=== PATIENT | male | born 1970 | race Caucasian/White ===

== ENCOUNTER 2018-07-03 12:14 | Emergency (ER) | payer BC ==
[2018-07-03 12:28] LABS: Absolute Lymphocytes (CBC) 3.1 K/uL (0.7-4.9); Absolute Monocytes 0.5 K/uL (0.1-1.3); Absolute Neutrophil 4.4 K/uL (1.8-8.0); Basophils % 0.5 % (0-1.3); Hematocrit 46.9 % (39.6-49.0); Lymphocytes % 37.9 % (15.3-44.8); MCH 32.5 pg (27.0-35.0); MPV 8.7 fL (7.6-11.3); Monocytes % 6.6 % (3.3-12.3); RBC Red Blood Cell Count 5.15 M/uL (4.33-5.43)
[2018-07-03 12:53] LABS: Protime INR 1.05
[2018-07-03 13:03] LABS: Albumin 4.2 g/dL (3.4-5.0); Bilirubin Direct 0.2 mg/dL (0-0.2); Bilirubin Total 0.7 mg/dL (0.2-1.0); CKMB Creatine Kinase MB 1.6 ng/mL (0.3-3.6); Magnesium 1.9 mg/dL (1.8-2.4); Potassium 3.9 mmol/L (3.5-5.1); Protein, Total 7.6 g/dL (6.4-8.2)
--- NOTE | 2018-07-03 13:03 | RAD REPORT ---
EXAM DESCRIPTION: CT - Head Brain Wo Cont - 07/03/2018 12:49 pm CLINICAL HISTORY: Syncope COMPARISON: None. TECHNIQUE: Computed axial tomography of the head was obtained. IV contrast was not requested. All CT scans are performed using dose optimization technique as appropriate and may include automated exposure control or mA/KV adjustment according to patient size. FINDINGS: A right mastoidectomy has been performed An intracranial bleed is not seen . The ventricles are normal in caliber. No extra-axial fluid collection is noted. Fluid within the sinuses/ mastoids is not seen. IMPRESSION: No acute intracranial abnormality is seen. If patient's symptoms persist MRI of the bra in would be recommended.
--- NOTE | 2018-07-03 13:04 | RAD REPORT ---
EXAM DESCRIPTION: Za Single View07/03/2018 12:54 pm CLINICAL HISTORY: cough COMPARISON: none FINDINGS: The lungs appear clear of acute infiltrate. The heart is normal size IMPRESSION: No acute abnormalities displayed
--- NOTE | 2018-07-03 13:17 | EKG ---
Test Date: 2018-07-03 Test Time: 12:17:43 [place] Installer: [facility] MEASUREMENT RESULTS: Intervals: Rate: 77 WY: 156 QRSD: 80 QT: 370 QTc: 418 [place]: P: -4 WY: 156 QRS: 10 T: 19 INTERPRETIVE STATEMENTS: Normal sinus rhythm Normal ECG No previous ECG available for comparison Electronically Signed On 07-03-18 13:16:17 CDT by Ta Read
--- NOTE | 2018-07-03 14:11 | ER ---
Nurse's Notes [facility] Name: Kuldeep Veras Age: 48 yrs Sex: Male : 1970 Arrival Date: 07/03/2018 Time: 12:16 Bed 4 Private MD: Diagnosis: Syncope and collapse;Heat syncope;Heat exhaustion, unspecified;Headache;Essential (primary) hypertension Presentation: 07/03 12:18 Presenting complaint: EMS states: He was at work just standing there and his co-workers jl7 reports he 'collapsed', reports he did hit his head. Pt reported having a CHENG and dizziness at [id number]. Transition of care: patient was not received from another setting of care. Onset of symptoms was July 03, 2018. Risk Assessment: Do you want to hurt yourself or someone else? Patient reports no desire to harm self or others. Initial Sepsis Screen: Does the patient meet any 2 criteria? No. Patient's initial sepsis screen is negative. Does the patient have a suspected source of infection? No. Patient's initial sepsis screen is negative. Care prior to arrival: Medication(s) given: Normal saline infusion, 200 mL IV initiated. 18 GA, in the left antecubital area, Glucose check: 84. 12:18 Method Of Arrival: EMS: [facility] jl7 12:18 Acuity: ALLISON 3 jl7 Triage Assessment: 12:22 General: Appears in no apparent distress. uncomfortable, Behavior is calm, cooperative, jl7 appropriate for age. Pain: Complains of pain in CHENG Pain does not radiate. Pain currently is 4 out of 10 on a pain scale. Pain began 4 hours ago. Is continuous. EENT: No signs and/or symptoms were reported regarding the EENT system. Neuro: Level of Consciousness is awake, alert, obeys commands, Oriented to person, place, time, situation. Cardiovascular: Patient's skin is warm and dry. Respiratory: Airway is patent Respiratory effort is even, unlabored, Respiratory pattern is regular, symmetrical, Breath sounds are clear bilaterally. GI: No signs and/or symptoms were reported involving the gastrointestinal system. : No signs and/or symptoms were reported regarding the genitourinary system. Derm: Skin is pink, warm \T\ dry. Musculoskeletal: No signs and/or symptoms reported regarding the musculoskeletal system. Historical: - Allergies: 12:22 shrimp; jl7 - Home Meds: 12:22 lisinopril Oral [Active]; jl7 - PMHx: 12:22 Hypertension; jl7 - Immunization history:: Adult Immunizations unknown. - Social history:: Smoking status: Patient uses tobacco products, smokes one-half pack cigarettes per day. - Family history:: not pertinent. - Ebola Screening: : No symptoms or risks identified at this time. Screenin:24 Abuse screen: Denies threats or abuse. Denies injuries from another. Nutritional [facility] screening: No deficits noted. Tuberculosis screening: No symptoms or risk factors identified. Fall Risk Fall in past 12 months (25 points). No secondary diagnosis (0 pts). IV access (20 points). Ambulatory Aid- None/Bed Rest/Nurse Assist (0 pts). Gait- Weak (10 pts.). Mental Status- Oriented to own ability (0 pts). Total Steiner Fall Scale indicates High Risk Score (45 or more points). Fall prevention measures have been instituted. Side Rails Up X 2 Placed Close to Nursing Station Frequent Obs/Assessments Occuring Family Present and informed to notify staff if the need to leave the bedside As available patient and family educated on Fall Prevention Program and Strategies. Assessment: 12:24 General: See triage assessment. [facility] 14:21 Reassessment: Patient appears in no apparent distress at this time. Patient and/or iw family updated on plan of care and expected duration. Pain level reassessed. Patient is alert, oriented x 3, equal unlabored respirations, skin warm/dry/pink. Patient states feeling better. Patient states symptoms have improved. Vital Signs: 12:22 BP 143 / 84; Pulse 71; Resp 16 S; Pulse Ox 97% on R/A; Weight 72.57 kg (R); Height 5 7 ft. 5 in. (165.10 cm) (R); Pain 4/10; 14:21 BP 121 / 84; Pulse 65; Resp 18 S; Pulse Ox 97% on R/A; Pain 0/10; iw 12:22 Body Mass Index 26.63 (72.57 kg, 165.10 cm) [facility] ED Course: 12:16 Patient arrived in ED. [facility] 12:16 Herman Pelaez MD is Attending Physician. [facility] 12:18 Hillary Mcginnis RN is Primary Nurse. jl7 12:21 Triage completed. jl7 12:22 Arm band placed on right wrist. jl7 12:24 Patient has correct armband on for positive identification. Placed in gown. Bed in low jl7 position. Call light in reach. Side rails up X 1. gambling monitor on. Pulse ox on. NIBP on. 12:24 Maintain EMS IV. Dressing intact. Good blood return noted. Site clean \T\ dry. Gauge \T\ jl 7 site: 18 Left AC. 12:48 CT completed. Patient moved to CT via stretcher. Patient moved back from CT. cw1 12:48 CT Head Brain wo Cont In Process Unspecified. EDMS 12:55 XRAY Chest (1 view) In Process Unspecified. EDMS 14:21 No provider procedures requiring assistance completed. IV discontinued, intact, iw bleeding controlled, No redness/swelling at site. Pressure dressing applied. Administered Medications: 12:27 Drug: NS 0.9% 1000 ml Route: IV; Rate: 1 bolus; Site: left antecubital; jl7 13:35 Follow up: IV Status: Completed infusion iw 14:25 Not Given (Patient Refused): NS 0.9% 1000 ml IV at 1 bolus Per protocol; 1000 mL bolus iw 14:25 Not Given (Physician Discretion): Tylenol 650 mg PO once iw Outcome: 14:10 Discharge ordered by MD. potter 14:26 Discharged to home ambulatory, with family. iw 14:26 Condition: good 14:26 Discharge instructions given to patient, family, Instructed on discharge instructions, follow up and referral plans. Demonstrated understanding of instructions, follow-up care. 14:27 Patient left the ED. iw Signatures: Dispatcher [employer] Herman Hudson MD MD cha Williams, Irene, RN RN Brittney Menezes cw1 Hillary Mcginnis, TAMAR RN jl7
--- NOTE | 2018-07-03 14:11 | EDPHYS ---
Physician Documentation [facility] Name: Kuldeep Veras Age: 48 yrs Sex: Male : 1970 Arrival Date: 07/03/2018 Time: 12:16 Bed 4 Private MD: ED Physician Herman Pelaez HPI: 07/03 12:18 This 48 yrs old Male presents to ER via Unassigned with complaints of syncope.tariq 12:18 The patient complains of pain to the forehead, left temporal area and right temporal tariq area. The patient describes the headache as aching. Onset: The symptoms/episode began/occurred just prior to arrival. in heat working. The patient has experienced syncope, became unresponsive, collapsed. Onset: The symptoms/episode began/occurred just prior to arrival. Duration: This was a single episode, that lasted 10 second(s). Associated signs and symptoms: Pertinent positives: syncope weakness. Severity of symptoms: At its worst the pain was mild, moderate, in the emergency department the pain is unchanged. Historical: - Allergies: 12:22 shrimp; jl7 - Home Meds: 12:22 lisinopril Oral [Active]; jl7 - PMHx: 12:22 Hypertension; jl7 - Immunization history:: Adult Immunizations unknown. - Social history:: Smoking status: Patient uses tobacco products, smokes one-half pack cigarettes per day. - Family history:: not pertinent. - Ebola Screening: : No symptoms or risks identified at this time. ROS: 12:18 Constitutional: Negative for fever, chills, and weight loss, Eyes: Negative for injury, tariq pain, redness, and discharge, ENT: Negative for injury, pain, and discharge, Neck: Negative for injury, pain, and swelling, Cardiovascular: Negative for chest pain, palpitations, and edema, Respiratory: Negative for shortness of breath, cough, wheezing, and pleuritic chest pain, Abdomen/GI: Negative for abdominal pain, nausea, vomiting, diarrhea, and constipation, Back: Negative for injury and pain, : Negative for injury, bleeding, discharge, and swelling, MS/Extremity: Negative for injury and deformity, Skin: Negative for injury, rash, and discoloration, Psych: Negative for depression, anxiety, suicide ideation, homicidal ideation, and hallucinations, Allergy/Immunology: Negative for hives, rash, and allergies, Endocrine: Negative for neck swelling, polydipsia, polyuria, polyphagia, and marked weight changes, Hematologic/Lymphatic: Negative for swollen nodes, abnormal bleeding, and unusual bruising. 12:18 Neuro: Positive for headache, syncope, weakness. Exam: 12:18 Constitutional: This is a well developed, well nourished patient who is awake, alert, tariq and in no acute distress. Head/Face: Normocephalic, atraumatic. Eyes: Pupils equal round and reactive to light, extra-ocular motions intact. Lids and lashes normal. Conjunctiva and sclera are non-icteric and not injected. Cornea within normal limits. Periorbital areas with no swelling, redness, or edema. ENT: Nares patent. No nasal discharge, no septal abnormalities noted. Tympanic membranes are normal and external auditory canals are clear. Oropharynx with no redness, swelling, or masses, exudates, or evidence of obstruction, uvula midline. Mucous membranes moist. Neck: Trachea midline, no thyromegaly or masses palpated, and no cervical lymphadenopathy. Supple, full range of motion without nuchal rigidity, or vertebral point tenderness. No Meningismus. Chest/axilla: Normal chest wall appearance and motion. Nontender with no deformity. No lesions are appreciated. Cardiovascular: Regular rate and rhythm with a normal S1 and S2. No gallops, murmurs, or rubs. Normal PMI, no JVD. No pulse deficits. Respiratory: Lungs have equal breath sounds bilaterally, clear to auscultation and percussion. No rales, rhonchi or wheezes noted. No increased work of breathing, no retractions or nasal flaring. Abdomen/GI: Soft, non-tender, with normal bowel sounds. No distension or tympany. No guarding or rebound. No evidence of tenderness throughout. Back: No spinal tenderness. No costovertebral tenderness. Full range of motion. Male : Normal genitalia with no discharge or lesions. Skin: Warm, dry with normal turgor. Normal color with no rashes, no lesions, and no evidence of cellulitis. MS/ Extremity: Pulses equal, no cyanosis. Neurovascular intact. Full, normal range of motion. Neuro: Awake and alert, GCS 15, oriented to person, place, time, and situation. Cranial nerves II-XII grossly intact. Motor strength 5/5 in all extremities. Sensory grossly intact. Cerebellar exam normal. Normal gait. Psych: Awake, alert, with orientation to person, place and time. Behavior, mood, and affect are within normal limits. 14:09 Neck: External neck: is normal, no acute changes, ROM/movement: is normal, no acute tariq changes, Lymph nodes: no appreciated lymphadenopathy. Vital Signs: 12:22 BP 143 / 84; Pulse 71; Resp 16 S; Pulse Ox 97% on R/A; Weight 72.57 kg (R); Height 5 jl7 ft. 5 in. (165.10 cm) (R); Pain 4/10; 14:21 BP 121 / 84; Pulse 65; Resp 18 S; Pulse Ox 97% on R/A; Pain 0/10; iw 12:22 Body Mass Index 26.63 (72.57 kg, 165.10 cm) jl7 MDM: 12:16 Patient medically screened. [facility] 12:21 Data reviewed: vital signs, nurses notes, lab test result(s), EKG, radiologic studies, [facility] CT scan, plain films. 07/03 12:18 Order name: Basic Metabolic Panel [facility] 07/03 12:18 Order name: CBC with Diff; Complete Time: 14:03 [facility] 07/03 12:18 Order name: Ckmb [facility] 07/03 12:18 Order name: CPK [facility] 07/03 12:18 Order name: LFT's [facility] 07/03 12:18 Order name: Magnesium; Complete Time: 14:03 [facility] 07/03 12:18 Order name: NT PRO-BNP [facility] 07/03 12:18 Order name: PT-INR; Complete Time: 14:03 [facility] 07/03 12:18 Order name: Ptt, Activated; Complete Time: 14:03 [facility] 07/03 12:18 Order name: Troponin (emerg Dept Use Only); Complete Time: 14:03 [facility] 07/03 12:18 Order name: Basic Metabolic Panel; Complete Time: 14:03 [facility] 07/03 12:18 Order name: CKMB Creatine Kinase MB; Complete Time: 14:03 [facility] 07/03 12:18 Order name: Creatine Phosphokinase; Complete Time: 14:03 [facility] 07/03 12:18 Order name: XRAY Chest (1 view); Complete Time: 14:03 [facility] 07/03 12:18 Order name: EKG; Complete Time: 12:18 [facility] 07/03 12:18 Order name: Cardiac monitoring; Complete Time: 12: [facility] 07/03 12:18 Order name: EKG - Nurse/Tech; Complete Time: 12: [facility] 07/03 12:18 Order name: IV Saline Lock; Complete Time: 12: [facility] 07/03 12:18 Order name: Labs collected and sent; Complete Time: 12: [facility] 07/03 12:18 Order name: O2 Per Protocol; Complete Time: 12: [facility] 07/03 12:18 Order name: O2 Sat Monitoring; Complete Time: 12: [facility] 07/03 12:18 Order name: CT Head Brain wo Cont; Complete Time: 14: [facility] 07/03 12:18 Order name: Liver (Hepatic) Function; Complete Time: 14:03 EDMS 07/03 12:18 Order name: NT PRO-BNP; Complete Time: 14:03 EDMS 07/03 14:07 Order name: PO challenge; Complete Time: 14: [facility] 07/03 14:08 Order name: Orthostatics; Complete Time: 14: [facility] 07/03 14:09 Order name: Vital Signs; Complete Time: 14:25 [facility] Administered Medications: 12:27 Drug: NS 0.9% 1000 ml Route: IV; Rate: 1 bolus; Site: left antecubital; jl7 13:35 Follow up: IV Status: Completed infusion iw 14:25 Not Given (Patient Refused): NS 0.9% 1000 ml IV at 1 bolus Per protocol; 1000 mL bolus iw 14:25 Not Given (Physician Discretion): Tylenol 650 mg PO once iw Disposition: 07/03/18 14:10 Discharged to Home. Impression: Syncope and collapse, Heat syncope, Heat exhaustion, unspecified, Headache, Essential (primary) hypertension. - Condition is Stable. - Discharge Instructions: General Headache Without Cause, Hypertension, Near-Syncope, Syncope, Weakness, Near-Syncope, Cnzx-wi-Sjrd, Syncope, Ojki-op-Ihvl, Heat Exhaustion Information, How to Take Your Blood Pressure, Tcsp-an-Uzlc, Weakness, Pwyt-or-Qgfm, General Headache Without Cause, Pvzk-cd-Shyy, Managing Your Hypertension. - Medication Reconciliation Form, Thank You Letter, Antibiotic Education, Prescription Opioid Use form. - Follow up: Private Physician; When: 2 - 3 days; Reason: Recheck today's complaints, Continuance of care, Re-evaluation by your physician. - Problem is new. - Symptoms have improved. Signatures: Dispatcher [employer] EDHerman David MD MD cha Mickail, Joel, PA PA jmm Williams, Irene, RN RN Hillary Franklin RN RN jl7 Corrections: (The following items were deleted from the chart) 14:11 14:10 07/03/2018 14:10 Discharged to Home. Impression: Syncope and collapse; Heat tariq syncope; Heat exhaustion, unspecified; Headache. Condition is Stable. Discharge Instructions: General Headache Without Cause, Near-Syncope, Syncope, Weakness, Near-Syncope, Mcqk-sq-Gayj, Syncope, Wkhb-cl-Eswz, Heat Exhaustion Information, Weakness, Yoco-nj-Gcdq, General Headache Without Cause, Zfrl-al-Lbda. Forms are Medication Reconciliation Form, Thank You Letter, Antibiotic Education, Prescription Opioid Use. Follow up: Private Physician; When: 2 - 3 days; Reason: Recheck today's complaints, Continuance of care, Re-evaluation by your physician. Problem is new. Symptoms have improved. [facility] 14:27 14:11 07/03/2018 14:10 Discharged to Home. Impression: Syncope and collapse; Heat iw syncope; Heat exhaustion, unspecified; Headache; Essential (primary) hypertension. Condition is Stable. Discharge Instructions: General Headache Without Cause, Near-Syncope, Syncope, Weakness, Near-Syncope, Wmpk-az-Lcmk, Syncope, Wony-gf-Yjih, Heat Exhaustion Information, Weakness, Avjs-ei-Hwoc, General Headache Without Cause, Bgbr-hn-Lpqa. Forms are Medication Reconciliation Form, Thank You Letter, Antibiotic Education, Prescription Opioid Use. Follow up: Private Physician; When: 2 - 3 days; Reason: Recheck today's complaints, Continuance of care, Re-evaluation by your physician. Problem is new. Symptoms have improved. tariq
== END 2018-07-03 14:27 | disposition home or self-care (01) ==
LOC: ER 12:14
DX: R55 Syncope and collapse (principal); T67.1XXA Heat syncope, initial encounter; X58.XXXA Exposure to other specified factors, initial encounter; X30.XXXA Exposure to excessive natural heat, initial encounter; Y93.89 Activity, other specified; Y92.9 Unspecified place or not applicable; F17.210 Nicotine dependence, cigarettes, uncomplicated; Z91.013 Allergy to seafood; I10 Essential (primary) hypertension; R51 Headache
CPT/HCPCS: 36415; 70450; 71045; 80048; 80076; 82550; 82553; 83735; 83880; 84484; 85025; 85610; 85730; 93005; 96360; 99285